=== PATIENT | male | born 1945 | race Caucasian/White ===

== ENCOUNTER 2016-09-20 15:23 | Emergency (ER) | payer OTHER ==
[~2016-09-20] VITALS: Ht 185.4 cm; Wt 121.5 kg
[2016-09-20] MEDS ORDERED: LOSARTAN POTASS25 MG PO (16:11)
[2016-09-20] MEDS ORDERED: LEVO-T50 MCG PO (16:11)
[2016-09-20] MEDS ORDERED: BYSTOLIC10 MG PO (16:12)
[2016-09-20] MEDS ORDERED: ROCALTROL0.25 MCG PO (16:12)
[2016-09-20] MEDS ORDERED: IRON325 MG PO (16:12)
[2016-09-20] MEDS ORDERED: ALLOPURINOL100 MG PO (16:12)
[2016-09-20] MEDS ORDERED: GLIPIZIDE10 MG PO (16:13)
[2016-09-20] MEDS ORDERED: LASIX20 MG PO (16:13)
[2016-09-20] MEDS ORDERED: METFORMIN HCL1000 MG PO (16:13)
[2016-09-20] MEDS ORDERED: SIMVASTATIN40 MG PO (16:13)
[2016-09-20] MEDS ORDERED: ECOTRIN325 MG PO (16:14)
[2016-09-20] MEDS ORDERED: CENTRUM SILVER1 EAC3 PO (16:14)
[2016-09-20] MEDS ORDERED: CYANOCOBALAM1000 MCG PO (16:14)
[2016-09-20 17:05] LABS: ADD MIUA? NO; BILIRUBIN NEGATIVE; BLOOD NEGATIVE; COLOR YELLOW ((YELLOW)); GLUCOSE (STRIP) NEGATIVE; KETONES NEGATIVE; LEUKOCYTES NEGATIVE; NITRITE NEGATIVE; PROTEIN (STRIP) TRACE; SPECIFIC GRAVITY 1.017 (1.000-1.030); UCUL ADDED? NO; UROBILINOGEN 0.2 MG/DL (0.2-1.0)
[2016-09-20 17:10] LABS: HEMATOCRIT 34.4 % (38.0-50.0); MCHC 31.4 G/DL (30.0-36.0); MCV 92.2 FL (86-99); MEAN PLAT.VOLUME 9.6 uM^3 (9.0-12.4); PLATELET COUNT 354 K/uL (156-360); RBC DIS.WIDTH-CV 14.1 % (11.8-14.6); RBC DIS.WIDTH-SD 45.8 % (39-53); RED BLOOD COUNT 3.73 M/uL (4.00-5.50); WHITE BLOOD COUNT 9.9 K/uL (4.1-10.2)
[2016-09-20 17:17] LABS: CHLORIDE 107 mEq/L (99-109); POTASSIUM 5.4 mEq/L (3.7-5.4); SODIUM 142 mEq/L (136-147)
[2016-09-20 17:19] LABS: GLUCOSE 155 mg/dL (70-99)
[2016-09-20 17:21] LABS: ANION GAP 11 MEQ/L (2-14); TOTAL BILIRUBIN 0.3 mg/dL (0.0-1.0)
[2016-09-20 17:23] LABS: ALKALINE PHOSPHATASE 76 IU/L (3-129); GFR ESTIMATE (CALCULATED) 21 mL/min/
[2016-09-20 17:24] LABS: UREA NITROGEN (BUN) 72 mg/dL (9-23)
[2016-09-20 20:32] LABS: CHLORIDE 108 mEq/L (99-109); POTASSIUM 5.5 mEq/L (3.7-5.4); SODIUM 139 mEq/L (136-147)
[2016-09-20 20:34] LABS: GLUCOSE 129 mg/dL (70-99)
[2016-09-20 20:35] LABS: ANION GAP 9 MEQ/L (2-14)
[2016-09-20 20:36] LABS: TOTAL BILIRUBIN 0.2 mg/dL (0.0-1.0)
[2016-09-20 20:38] LABS: ALKALINE PHOSPHATASE 69 IU/L (3-129); GFR ESTIMATE (CALCULATED) 23 mL/min/
[2016-09-20 20:39] LABS: UREA NITROGEN (BUN) 70 mg/dL (9-23)
[2016-09-20 21:32] VITALS: BP 162/70
== END 2016-09-20 21:33 | disposition home or self-care (01) ==
LOC: EME 15:23
PROVIDERS: Nurse Practitioner Family
DX: R79.89 Other specified abnormal findings of blood chemistry (principal); N28.9 Disorder of kidney and ureter, unspecified; Z79.82 Long term (current) use of aspirin
CPT/HCPCS: 80053; 81003; 85027; 99281; 99283; J7030